=== PATIENT | female | born 1950 | race Caucasian/White ===

== ENCOUNTER 2017-02-04 15:19 | Emergency (ER) | payer OTHER ==
[2017-02-04 15:39] LABS: MANUAL DIFF NEEDED? NO
[2017-02-04 15:40] LABS: URINE SOURCE CLEAN CATCH
[2017-02-04 15:45] LABS: BASO% 0.2 % (0.0-0.8); BILIRUBIN URINE NEGATIVE (NEGATIVE); BLOOD URINE LARGE (NEGATIVE); COLOR YELLOW; EOS# 0.04 X1000 (0.0-0.7); EOS% 0.3 % (0.0-10.0); GLUCOSE URINE NEGATIVE (NEGATIVE); HEMATOCRIT 42.5 % (37.0-47.0); HEMOGLOBIN 13.8 g/dL (12.0-16.0); IMM GRAN# 0.03 X1000 (0.0-0.04); IMM GRAN% 0.2 % (0.0-0.5); LEUKOCYTES URINE MODERATE (NEGATIVE); LYMPH# 1.47 X1000 (1.2-3.4); LYMPH% 11.8 % (20.5-51.1); MCH 30.4 PG (27-31); MCHC 32.5 g/dL (33-37); MCV 93.6 FL (81-99); MONO# 0.69 X1000 (0.11-0.59); MONO% 5.5 % (1.7-9.3); MPV 9.7 FL (7.4-10.4); NITRITE URINE NEGATIVE (NEGATIVE); PH URINE 6.5; PLT 312 X1000 (130-400); PROTEIN URINE 30 mg/dL (NEGATIVE); RBC 4.54 XMIL (4.2-5.4); SP GRAVITY URINE 1.017; TURBIDITY URINE HAZY (CLEAR); URINE MICRO REVIEW NEEDED? YES; UROBILINOGEN URINE NORMAL (NORMAL)
[2017-02-04 15:58] LABS: UR EPITHELIAL CELLS >10 /HPF (<10); URINE BACTERIA 2+ /HPF; URINE CULTURE NEEDED? YES; URINE RBC TNTC /HPF (<10); URINE WBC TNTC /HPF (<10)
[2017-02-04 16:00] LABS: AGAP 16; ALBUMIN 3.7 g/dL (3.5-5.0); ALKALINE PHOSPHATASE 91 U/L (32-104); AMYLASE 60 U/L (20-200); BUN 12 mg/dL (8-22); CALCIUM 8.8 mg/dL (8.8-10.2); CHLORIDE 99 mmol/L (98-107); COSMO 272; GOT 18 U/L (10-30); GPT 12 U/L (10-36); LIPASE 24 U/L (13-60); POTASSIUM 3.5 mmol/L (3.5-5.1); SODIUM 135 mmol/L (136-145); TCO2 20 mmol/L (25-35); TOTAL BILIRUBIN 0.31 mg/dL (0.20-1.00); TOTAL PROTEIN 7.3 g/dL (6.3-8.3)
[2017-02-04 16:12] LABS: URINE SMALL ROUND CELLS TRANS PRESENT
--- NOTE | 2017-02-04 16:49 | PROVIDER DOCUMENTATION ---
HPI-Abdominal Pain/GI Problem - General Chief Complaint: Flank Pain Stated Complaint: NAUSEA/VOMITING Time Seen by Provider: 02/04/17 16:43 Source: patient Allergies/Adverse Reactions: Patient Allergies Allergy/AdvReac Type Severity Reaction Status Date / Time Sulfa (Sulfonamide Allergy NAUSEA/VOMI Verified 02/04/17 22:46 Antibiotics) TING Home Medications: Home Medication List Medication Instructions Recorded Confirmed Last Taken Type Meloxicam [Mobic] 15 mg PO DAILY 12/27/16 02/04/17 02/04/17 08:00 History Oxycodone/APAP 10 mg/325 mg 1 - 2 each PO Q4H PRN PRN #60 01/04/17 02/04/1711/11 08:00 Rx [Percocet-10] tablet Rivaroxaban [Xarelto] 10 mg PO Q24H #14 tablet 01/04/17 02/04/17 02/04/17 08:00 Rx Ciprofloxacin HCl [Cipro] 500 mg PO BID #14 tablet 02/04/17 Unknown Rx Hydrocodone/APAP 7.5 mg/325 mg 1 each PO Q6H PRN PRN #20 tablet 02/04/17 Unknown Rx [Sherman-7.5] Promethazine [Phenergan] 25 mg PO Q6H PRN PRN #20 tablet 02/04/17 Unknown Rx Tamsulosin [Flomax] 0.4 mg PO DAILY #20 capsule 02/04/17 Unknown Rx - History of Present Illness-ABD Nature of Presenting Problems: 66 y/o WF c/o bloating, N/V, abd. pain, L flank pain x 12 hours. Pt states nausea, chills x 2-3 days. Reports that vomit x 3 today. Reports little food today. L flank pain and epigastric pain- L flank pain started first. States 2 BM today. Pain is 8/10, achy and constant in L flank, burning in epigastric. Took miralax yesterday. States post-op L knee surgery x 5 weeks (TKR). States recent UTI prior to knee surgery. Denies urinary sxs. Review of Systems - Adult - REVIEW OF SYSTEMS - ADULT Constitutional: reports: see HPI, chills. denies: fever Eyes: reports: no symptoms reported. denies: blurred vision, double vision Ears, Nose, Mouth & Throat: reports: no symptoms reported. denies: ear pain, nose pain Cardiovascular: reports: no symptoms reported. denies: chest pain, palpitations Respiratory: reports: no symptoms reported. denies: dyspnea on exertion, shortness of breath Gastrointestinal: reports: see HPI, abdominal pain, nausea, vomiting. denies: constipation, diarrhea Genitourinary: reports: see HPI, flank pain, frequent UTI's. denies: dysuria, frequency Musculoskeletal: reports: no symptoms reported. denies: joint pain, joint swelling Integumentary: reports: no symptoms reported. denies: nail changes, rash Neurological: reports: no symptoms reported. denies: numbness, paresthesia Psychiatric: reports: no symptoms reported Endocrine: reports: no symptoms reported. denies: cold intolerance, heat intolerance Hematologic/Lymphatic: reports: no symptoms reported. denies: easy bruising, prolonged bleeding Allergic/Immunologic: reports: no symptoms reported All Other Systems: Reviewed and Negative Past History - Adult - PAST MEDICAL HISTORY-ADULT Review of Records: reports: Nursing Assessment Review, Medications Reviewed Musculoskeletal: reports: arthritis - PRIOR SURGERIES/PROCEDURES Surgical/Procedure History: reports: cholecystectomy, hysterectomy, orthopedic ( extremity) (bunion, trigger finger, CMC arthritis), joint replacement (L knee), back/neck (spondylosis), other (sinus polypectomy) - SOCIAL HISTORY Smoking: denies Alcohol Use Frequency: never Physical Exam-General - PHYSICAL EXAM-ADULT Initial Vital Signs Reviewed: Yes - CONSTITUTIONAL General Appearance: alert, moderate distress - EYES Eyes: pink conjunctivae - HEAD, EARS, NOSE, MOUTH & THROAT HENMT: normocephalic/atraumatic, moist mucous membranes - NECK Neck: supple, normal inspection - RESPIRATORY Respiratory: lungs clear, normal breath sounds. negative: crackles, rales, rhonchi, stridor, wheezing - CARDIOVASCULAR Cardiovascular: regular rate, rhythm. negative: bradycardia, tachycardia - GASTROINTESTINAL (ABDOMEN) Abdominal Exam: soft, tenderness (generalized, worse in epigastric). negative: normal bowel sounds (decreased), distended, guarding, rigid, rebound, McBurney' s point tenderness, Mack's sign - MUSCULOSKELETAL Back Exam: CVA tenderness (L) Extremity: normal gait, normal inspection, no calf tenderness - SKIN Integumentary: normal color, normal turgor, warm/dry. negative: diaphoresis - NEUROLOGIC Neurologic: negative: aphasia - PSYCHIATRIC Psych/Mental Status: normal mood/affect, normal thought content, normal thought process, oriented x 3 Progress - PLAN OF CARE/RESULTS Progress/Plan/Lab Results: Laboratory Tests 02/04/17 02/04/17 02/04/17 15:25 15:25 15:25 WBC 12.50 H RBC 4.54 Hgb 13.8 Hct 42.5 MCV 93.6 MCH 30.4 MCHC 32.5 L RDW Std Deviation 13.6 Plt Count 312 MPV 9.7 Immature Gran % (Auto) 0.2 Neut % (Auto) 82.0 H Lymph % (Auto) 11.8 L [place] % (Auto) 5.5 Eos % (Auto) 0.3 Baso % (Auto) 0.2 Immature Gran # (Auto) 0.03 Neut # (Auto) 10.24 H Lymph # (Auto) 1.47 [place] # (Auto) 0.69 H Eos # (Auto) 0.04 Baso # (Auto) 0.03 Sodium 135 L Potassium 3.5 Chloride 99 Carbon Dioxide 20 L Anion Gap 16 BUN 12 Creatinine 0.6 Estimated GFR/1.73 m2 > 60 BUN/Creatinine Ratio 20 Glucose 130 H Calculated Osmolality 272 Calcium 8.8 Total Bilirubin 0.31 AST 18 ALT 12 Alkaline Phosphatase 91 Total Protein 7.3 Albumin 3.7 Globulin 3.6 Albumin/Globulin Ratio 1.0 Amylase 60 Lipase 24 Urine Source CLEAN CATCH Urine Color YELLOW Urine Turbidity HAZY Urine pH 6.5 Ur Specific [place] 1.017 Urine Protein 30 A Ur Glucose (Stick) NEGATIVE Ur Ketones (Stick) 20 A Urine Blood LARGE A Urine Nitrite NEGATIVE Urine Bilirubin NEGATIVE Urobilinogen Dipstick NORMAL Urine Leukocytes MODERATE A Urine WBC (Auto) TNTC A Urine RBC (Auto) TNTC A U Epithel Cells (Auto) >10 A Urine Bacteria (Auto) 2+ Urine Crystals Not Reportable Small Round Cells TRANS PRESENT Urine Casts Not Reportable Urine Yeast-like Cells Not Reportable Orders Category Date Time Status RENAL STONE SEARCH [CT] Stat Exams 02/04/17 16:53 Completed AMYLASE [CHEM] Stat Lab 02/04/17 15:25 Completed CBC WITH ELECTRONIC DIFF [HEME] Stat Lab 02/04/17 15:25 Completed COMPREHENSIVE METABOLIC PANEL [CHEM] Stat Lab 02/04/17 15:25 Completed LIPASE [CHEM] Stat Lab 02/04/17 15:25 Completed URINALYSIS W/POSS RFLX CULT [URINALYSIS] Stat Lab 02/04/17 15:25 Completed URINE CULTURE [RM] Routine Lab 02/04/17 15:59 Completed URINE MANUAL MICROSCOPIC [URINALYSIS] Stat Lab 02/04/17 15:25 Completed CefTRIAXONE [Rocephin] Med 02/04/17 21:11 Discontinued 1 gm IM NOW ONE Hydromorphone [Dilaudid] Med 02/04/17 21:11 Discontinued 1 mg IM NOW ONE Lidocaine 1% Pf [Xylocaine-Mpf 1%] Med 02/04/17 21:11 Discontinued 5 ml INJ NOW ONE Ondansetron Odt [Zofran Odt] Med 02/04/17 16:54 Discontinued 4 mg PO NOW ONE Promethazine [Phenergan] Med 02/04/17 21:11 Discontinued 25 mg IM NOW ONE Tamsulosin [Flomax] Med 02/04/17 21:11 Discontinued 0.4 mg PO NOW ONE Vital Signs Temp Pulse Resp BP Pulse Ox 02/04/17 21:46 98.3 F 81 20 137/64 99 02/04/17 20:09 98.3 F 91 H 16 150/79 98 02/04/17 15:22 98.4 F 69 18 141/85 98 Sulfa (Sulfonamide Antibiotics) Allergy (Verified 12/27/16 16:02) NAUSEA/VOMITING Meloxicam [Mobic] 15 mg PO DAILY 12/27/16 Oxycodone/APAP 10 mg/325 mg [Percocet-10] 1 - 2 each PO Q4H PRN PRN #60 tablet 01/04/17 Rivaroxaban [Xarelto] 10 mg PO Q24H #14 tablet 01/04/17 Ciprofloxacin HCl [Cipro] 500 mg PO BID #14 tablet 02/04/17 Hydrocodone/APAP 7.5 mg/325 mg [Sherman-7.5] 1 each PO Q6H PRN PRN #20 tablet 11/11 Promethazine [Phenergan] 25 mg PO Q6H PRN PRN #20 tablet 02/04/17 Tamsulosin [Flomax] 0.4 mg PO DAILY #20 capsule 02/04/17 UNSPECIFIED OSTEOARTHRITIS, UNSPECIFIED SITE (02/04/17) HYDRONEPHROSIS WITH RENAL AND URETERAL CALCULOUS OBSTRUCTION (02/04/17) ACUTE CYSTITIS WITH HEMATURIA (02/04/17) EPIGASTRIC PAIN (02/04/17) GENERALIZED ABDOMINAL PAIN (02/04/17) NAUSEA WITH VOMITING, UNSPECIFIED (02/04/17) [facility] (CURRENT) USE OF ANTICOAGULANTS (02/04/17) [facility] (CURRENT) USE OF NON-STEROIDAL NON-INFLAM (NSAID) (02/04/17) OTHER [facility] (CURRENT) DRUG THERAPY (02/04/17) PERSONAL HISTORY OF URINARY (TRACT) INFECTIONS (02/04/17) PRESENCE OF UNSPECIFIED ARTIFICIAL KNEE JOINT (02/04/17) I&O 02/05/17 02/06/17 02/07/17 06:59 06:59 06:59 Output Total 120 Balance -120 Laboratory 02/04/17 02/04/17 02/04/17 15:25 15:25 15:25 WBC 12.50 H RBC 4.54 Hgb 13.8 Hct 42.5 MCV 93.6 MCH 30.4 MCHC 32.5 L RDW Std Deviation 13.6 Plt Count 312 MPV 9.7 Immature Gran % (Auto) 0.2 Neut % (Auto) 82.0 H Lymph % (Auto) 11.8 L [place] % (Auto) 5.5 Eos % (Auto) 0.3 Baso % (Auto) 0.2 Immature Gran # (Auto) 0.03 Neut # (Auto) 10.24 H Lymph # (Auto) 1.47 [place] # (Auto) 0.69 H Eos # (Auto) 0.04 Baso # (Auto) 0.03 Sodium 135 L Potassium 3.5 Chloride 99 Carbon Dioxide 20 L Anion Gap 16 BUN 12 Creatinine 0.6 Estimated GFR/1.73 m2 > 60 BUN/Creatinine Ratio 20 Glucose 130 H Calculated Osmolality 272 Calcium 8.8 Total Bilirubin 0.31 AST 18 ALT 12 Alkaline Phosphatase 91 Total Protein 7.3 Albumin 3.7 Globulin 3.6 Albumin/Globulin Ratio 1.0 Amylase 60 Lipase 24 Urine Source CLEAN CATCH Urine Color YELLOW Urine Turbidity HAZY Urine pH 6.5 Ur Specific [place] 1.017 Urine Protein 30 A Ur Glucose (Stick) NEGATIVE Ur Ketones (Stick) 20 A Urine Blood LARGE A Urine Nitrite NEGATIVE Urine Bilirubin NEGATIVE Urobilinogen Dipstick NORMAL Urine Leukocytes MODERATE A Urine WBC (Auto) TNTC A Urine RBC (Auto) TNTC A U Epithel Cells (Auto) >10 A Urine Bacteria (Auto) 2+ Urine Crystals Not Reportable Small Round Cells TRANS PRESENT Urine Casts Not Reportable Urine Yeast-like Cells Not Reportable Discussed results and medication use with pt, including f/u with specialist. Discussed pt with Dr. Hernandez; he agreed with tx plan. - CT/MRI 1 CT Study: Abdomen, Pelvis Impression: See EMR Report (1. There is a 9 mm stone in the proximal left ureter at the ureteropelvic junction with mild hydronephrosis. 2. Cholecystectomy. 3. Hysterectomy. -per Dr. Scherer) Departure - Departure Time of Disposition Order: 21:06 DIAGNOSIS: Ureteral stone with hydronephrosis UTI (urinary tract infection) Qualifiers: Urinary tract infection type: acute cystitis Hematuria presence: with hematuria Qualified Code(s): N30.01 - Acute cystitis with hematuria Disposition: HOME 01 Certified Medical Emergency: Emergent Condition: Stable Additional Instructions: Take medications as directed. Follow up with Dr. Rolon tomorrow for further evaluation. Drink plenty of fluids. ED Follow Up Instructions: You have been treated by a care provider in the Emergency Department. These instructions are being provided to you so you can have an understanding of how to care for yourself upon discharge. Upon discharge from the Emergency Department, you are responsible for making arrangements for follow-up care by a physician of your choice. Take all prescribed medications as directed. Return to the Emergency Department immediately for any new or worsening symptoms. You may call the Physician Referral phone number at [phone] to obtain a list of Physicians who are taking new patients. Prescriptions: Ciprofloxacin HCl [Cipro] 500 mg PO BID #14 tablet Tamsulosin [Flomax] 0.4 mg PO DAILY #20 capsule Hydrocodone/APAP 7.5 mg/325 mg [Sherman-7.5] 1 each PO Q6H PRN PRN #20 tablet PRN Reason: Pain Promethazine [Phenergan] 25 mg PO Q6H PRN PRN #20 tablet PRN Reason: Nausea Referrals: Danielle Thompson MD [Primary Care Provider] - Juancarlos Rolon MD [STAFF PHYSICIAN] - Instructions: Kidney Stones, [id number], Urinary Tract Infection, Easy-to- Read Attestation - Physician/ SHERMAN Attestation Patient care was provided by Advanced Practice Provider:: Yes Advanced Practice Provider:: Lora Echeverria Advanced Practice Provider documentation review:: The Mid-level provider documentation, treatment plan and medical decision making was reviewed by the physician who agrees with all treatment and medical decision making by the MLP.
[2017-02-04] MEDS ORDERED: ZOFRAN ODT PO ONE (16:54)
--- NOTE | 2017-02-04 19:30 | Diag Imaging Result Document ---
PROCEDURE NAME: RENAL STONE SEARCH - 02/04/2017 STUDY: CT abdomen and pelvis without oral or intravenous contrast. PROTOCOL: Dose reduction protocol. Renal stone search. The upper abdomen is not included on this exam. The gallbladder has been removed. Normal spleen and adrenal glands. No abnormality to the pancreas. No focal hepatic abnormality in the mid and lower liver on this noncontrasted study. No right renal stone or right- sided hydronephrosis. There is a 6 x 6 x 9 mm stone in the proximal left ureter at the ureteropelvic junction with mild perinephric inflammation and mild distention of the renal pelvis. No aortic aneurysm. No bowel obstruction. Normal appendix. No abscess. The uterus has been removed. The urinary bladder is not distended. IMPRESSION: 1. There is a 9 mm stone in the proximal left ureter at the ureteropelvic junction with mild hydronephrosis. 2. Cholecystectomy. 3. Hysterectomy. A preliminary report was given at 6:12 p.m.
[2017-02-04] MEDS ORDERED: PHENERGAN IM ONE (21:11)
[2017-02-04] MEDS ORDERED: ROCEPHIN IM ONE (21:11)
[2017-02-04] MEDS ORDERED: XYLOCAINE-MPF 1% INJ ONE (21:11)
[2017-02-04] MEDS ORDERED: DILAUDID IM ONE (21:11)
[2017-02-04] MEDS ORDERED: FLOMAX PO ONE (21:11)
[2017-02-04 21:47] VITALS: BP 137/64
== END 2017-02-04 22:25 | disposition home or self-care (01) ==
LOC: ED 15:19
DX: N13.2 Hydronephrosis with renal and ureteral calculous obstruction (principal); N30.01 Acute cystitis with hematuria; R11.2 Nausea with vomiting, unspecified; R10.13 Epigastric pain; R10.84 Generalized abdominal pain; Z87.440 Personal history of urinary (tract) infections; M19.90 Unspecified osteoarthritis, unspecified site; Z96.659 Presence of unspecified artificial knee joint; Z79.899 Other long term (current) drug therapy; Z79.01 Long term (current) use of anticoagulants; Z79.1 Long term (current) use of non-steroidal anti-inflammatories (NSAID)
CPT/HCPCS: 36415; 74176; 80053; 81001; 82150; 83690; 85025; 87077; 87088; 87186; 96372; J0696; J1170; J2550

== ENCOUNTER 2017-02-08 05:49 | Day surgery (SDC) | payer OTHER ==
[2017-02-07 10:48] LABS: HEMOGLOBIN 12.4 g/dL (12.0-16.0); MCH 29.9 PG (27-31); MCHC 31.8 g/dL (33-37); MPV 9.7 FL (7.4-10.4); RBC 4.15 XMIL (4.2-5.4)
[2017-02-07 11:15] LABS: CALCIUM 9.1 mg/dL (8.8-10.2); POTASSIUM 3.7 mmol/L (3.5-5.1)
[2017-02-08] MEDS ORDERED: PEPCID ONE (06:16)
[2017-02-08] MEDS ORDERED: REGLAN ONE (06:16)
[2017-02-08] MEDS ORDERED: KEFZOL 2 GM/D5W 50 ML ONE (06:17)
[2017-02-08] MEDS ORDERED: TRANSDERM-SCOP ONE (06:30)
[2017-02-08] MEDS: LR 1,000 ML ONE ×2 (06:33→06:55)
[2017-02-08] MEDS ORDERED: DUONEB (A & A) INH ONE (08:18)
[2017-02-08] MEDS: MORPHINE ONE ×4 (08:40→08:55)
[2017-02-08] MEDS ORDERED: LR 1,000 ML ONE (08:42)
--- NOTE | 2017-02-08 09:07 | OPERATIVE NOTE ---
PROCEDURE DATE: 02/08/2017 PREOPERATIVE DIAGNOSIS: Left ureteropelvic junction stone. POSTOPERATIVE DIAGNOSIS: Left ureteropelvic junction stone. PROCEDURE PERFORMED: Extracorporeal shockwave lithotripsy of the left ureteropelvic junction stone. SURGEON: Carlos A Dias MD ANESTHESIA: General endotracheal. FINDINGS: An approximate 8-9 mm stone at the left ureteropelvic junction. INDICATION FOR PROCEDURE: This 66-year-old female with history of renal lithiasis developed severe left flank pain. Evaluation revealed a left UPJ stone. DESCRIPTION OF PROCEDURE: After informed consent was obtained from the patient and her receiving IV antibiotics, she was taken to the main OR, placed in the supine position, and general endotracheal anesthesia was achieved. She was then placed in the proper position for left extracorporeal shockwave lithotripsy. The stone received 3000 shocks, starting at energy level 1, ramping to energy level 7. She received 12.5 g of mannitol at the start of the case. At completion, the stone appeared well fragmented. Estimated blood loss was zero. She tolerated the procedure well. Total fluoroscopy time was 2 minutes 33 seconds. She was taken to the recovery room in good condition.
[2017-02-08] MEDS ORDERED: FLOMAX ONE (09:16)
[2017-02-08] MEDS ORDERED: NORCO-10 ONE (09:16)
[2017-02-08 09:55] VITALS: BP 122/66
[2017-02-08] MEDS ORDERED: FENTANYL ONE (09:56)
[2017-02-08] MEDS ORDERED: MANNITOL ONE (10:14)
[2017-02-08] MEDS ORDERED: ROBINUL ONE (10:15)
[2017-02-08] MEDS ORDERED: DECADRON ONE (10:15)
[2017-02-08] MEDS ORDERED: ZOFRAN ONE (10:15)
[2017-02-08] MEDS ORDERED: QUELICIN (DOSE) ONE (10:15)
[2017-02-08] MEDS ORDERED: VENTOLIN HFA ONE (10:15)
[2017-02-08] MEDS ORDERED: XYLOCAINE-MPF 2% ONE (10:15)
[2017-02-08] MEDS ORDERED: DIPRIVAN 1% ONE (12:31)
== END 2017-02-08 09:55 | disposition home or self-care (01) ==
LOC: OPS 05:49
PROVIDERS: ATTEND Urology
DX: N20.1 Calculus of ureter (principal); Z87.891 Personal history of nicotine dependence
CPT/HCPCS: 80048; 85027; 94640; J0330; J0690; J1100; J2150; J2270; J2405; J3010; J7120

== ENCOUNTER 2019-10-07 09:40 | Day surgery (SDC) ==
--- NOTE | 2019-10-01 17:48 | EKG Report ---
Test Performed on : 10/01/2019 5:30:11 PM Test Reason : PAT Blood Pressure : / mmHG Vent. Rate : 073 BPM Atrial Rate : 073 BPM P-R Int : 134 ms QRS Dur : 120 ms QT Int : 408 ms P-R-T Axes : 050 025 002 degrees QTc Int : 449 ms Normal sinus rhythm. Right bundle branch block Abnormal ECG When compared with ECG of 27-DEC-2016 12:37, T wave inversion now evident in Inferior leads T wave inversion more evident in Anterior leads Unconfirmed Result
[2019-10-01 17:54] LABS: URINE SOURCE CLEAN CATCH
[2019-10-01 17:54] LABS: BASO# 0.06 X1000 (0.0-0.2); BASO% 0.7 % (0.0-0.8); EOS# 0.44 X1000 (0.0-0.7); EOS% 4.8 % (0.0-10.0); HEMATOCRIT 48.4 % (37.0-47.0); HEMOGLOBIN 15.4 g/dL (12.0-16.0); IMM GRAN# 0.03 X1000 (0.0-0.04); IMM GRAN% 0.3 % (0.0-0.5); LYMPH# 2.59 X1000 (1.2-3.4); LYMPH% 28.2 % (20.5-51.1); MCH 30.3 PG (27-31); MCHC 31.8 g/dL (33-37); MCV 95.1 FL (81-99); MONO# 0.92 X1000 (0.11-0.59); MPV 9.7 FL (7.4-10.4); NEUT# 5.14 X1000 (1.4-6.5); PLT 303 X1000 (130-400); RBC 5.09 XMIL (4.2-5.4); RDW 13.8 % (11.5-14.5); WBC 9.18 X1000 (4.8-10.8)
[2019-10-01 18:16] LABS: INR 1.22; PROTIME 15.6 Seconds (11.0-16.0)
[2019-10-01 18:19] LABS: AGAP 5; BUN 12 mg/dL (8-22); CALCIUM 8.7 mg/dL (8.8-10.2); CHLORIDE 100 mmol/L (98-107); COSMO 268; CREATININE 0.7 mg/dL (0.5-0.9); ESTIMATED GFR > 60; GLUCOSE 98 mg/dL (70-104); POTASSIUM 3.8 mmol/L (3.5-5.1); SODIUM 134 mmol/L (136-145); TCO2 29 mmol/L (25-35)
[2019-10-01 18:30] LABS: BILIRUBIN URINE NEGATIVE (NEGATIVE); BLOOD URINE TRACE (NEGATIVE); COLOR YELLOW; GLUCOSE URINE NEGATIVE (NEGATIVE); KETONE URINE NEGATIVE (NEGATIVE); LEUKOCYTES URINE NEGATIVE (NEGATIVE); NITRITE URINE NEGATIVE (NEGATIVE); PROTEIN URINE NEGATIVE (NEGATIVE); SP GRAVITY URINE 1.016; TURBIDITY URINE CLEAR (CLEAR); UROBILINOGEN URINE NORMAL (NORMAL)
[2019-10-01 18:32] LABS: UR EPITHELIAL CELLS <10 /HPF (<10); URINE BACTERIA NEGATIVE /HPF; URINE RBC <10 /HPF (<10); URINE WBC <10 /HPF (<10)
[2019-10-07] MEDS ORDERED: XYLOCAINE-MPF 2% ONE (09:50)
[2019-10-07] MEDS ORDERED: ZOFRAN ONE (09:50)
[2019-10-07] MEDS ORDERED: FENTANYL ONE (09:50)
[2019-10-07] MEDS ORDERED: DECADRON ONE (09:50)
[2019-10-07] MEDS ORDERED: ROBINUL ONE (09:50)
[2019-10-07] MEDS ORDERED: DIPRIVAN 1% ONE ×2 (09:51→10:57)
[2019-10-07] MEDS ORDERED: OFIRMEV 1000 MG/ISOTONIC SOLN 1,000 MG/100 ML BOTTLE ONE (09:51)
[2019-10-07] MEDS ORDERED: PEPCID ONE (09:59)
[2019-10-07] MEDS ORDERED: KEFZOL 1 GM/D5W 2 GM/100 ML IVPB ONE (09:59)
[2019-10-07] MEDS ORDERED: COLACE ONE (09:59)
[2019-10-07] MEDS ORDERED: LR 1,000 ML ONE (09:59)
[2019-10-07] MEDS ORDERED: LYRICA ONE (09:59)
[2019-10-07] MEDS ORDERED: REGLAN ONE (09:59)
[2019-10-07] MEDS ORDERED: DURAMORPH ONE (10:53)
[2019-10-07] MEDS ORDERED: MARCAINE 0.25% PF ONE (10:53)
[2019-10-07] MEDS ORDERED: VANCOMYCIN ONE (10:53)
[2019-10-07] MEDS ORDERED: TORADOL ONE (10:53)
[2019-10-07] MEDS ORDERED: EXPAREL 1.3% ONE (10:54)
[2019-10-07] MEDS ORDERED: SODIUM CHLORIDE 0.9% ONE (10:54)
[2019-10-07] MEDS ORDERED: VERSED ONE (11:24)
[2019-10-07] MEDS: CYKLOKAPRON 1,000 MG/NS 2,000 MG/200 ML IVPB ONE ×2 (11:50→12:42)
[2019-10-07 13:00] LABS: URINE SOURCE CATH
[2019-10-07 13:04] LABS: BILIRUBIN URINE NEGATIVE (NEGATIVE); BLOOD URINE NEGATIVE (NEGATIVE); COLOR YELLOW; GLUCOSE URINE NEGATIVE (NEGATIVE); KETONE URINE NEGATIVE (NEGATIVE); LEUKOCYTES URINE NEGATIVE (NEGATIVE); NITRITE URINE NEGATIVE (NEGATIVE); PROTEIN URINE NEGATIVE (NEGATIVE); SP GRAVITY URINE 1.013; TURBIDITY URINE CLEAR (CLEAR); UR EPITHELIAL CELLS <10 /HPF (<10); URINE BACTERIA NEGATIVE /HPF; URINE RBC <10 /HPF (<10); URINE WBC <10 /HPF (<10); UROBILINOGEN URINE NORMAL (NORMAL)
--- NOTE | 2019-10-07 13:58 | Diag Imaging Result Doc PS360 ---
EXAM: KNEE 1-2 VIEWS-RIGHT 10/07/2019 HISTORY: post op TECHNIQUE: Right knee two views COMMENT: There is a total knee arthroplasty. There is no evidence of acute bony abnormality otherwise. IMPRESSION: Postsurgical change. Electronically signed by Rodolfo Mijares 10/07/2019 1:56 PM
[2019-10-07] MEDS ORDERED: NS 1,000 ML ONE (14:00)
--- NOTE | 2019-10-07 14:23 | OPERATIVE NOTE ---
PROCEDURE DATE: 10/07/2019 PREOPERATIVE DIAGNOSIS: Degenerative joint disease, right knee. POSTOPERATIVE DIAGNOSIS: Degenerative joint disease, right knee. OPERATIVE PROCEDURE PERFORMED: Right total knee replacement. SURGEON: Margaux Domínguez MD. NURSE LEADER: OLE Irwin. Mr. Kan was necessary for proper retraction and manipulation of the leg during the case. ANESTHESIA: Spinal. COMPLICATIONS: None. PROCEDURE IN DETAIL: This 69-year-old female presents for a right total knee replacement. Risks, benefits, and no guarantees were discussed, and she is willing to proceed. She was taken to the operating room and satisfactory anesthesia obtained. The right leg was prepped and draped in the usual sterile fashion. A time-out was taken to confirm operative site, procedure, and patient. The leg was wrapped with an Esmarch and tourniquet inflated to 350 mmHg. A midline incision was made over the front of the right knee, followed by a quad tendon sparing arthrotomy. The patella was everted and resurfaced with freehand technique. With the patella subluxed laterally, the knee was flexed. An intramedullary hole was made in the distal femur and the distal femoral cutting block secured in 5 degrees of valgus. Distal femoral resection was made and the femur sized to a size 4 femoral implant. The finishing block was secured, and the anterior, posterior, and chamfer cuts sequentially made. Afterwards, any osteophytes were debrided from the femur. The knee was flexed and a PCL retractor placed behind the tibia to protect the PCL and neurovascular bundle. Tibial cutting block was secured with extramedullary alignment and tibial resection made. Flexion and extension gaps were equal with a 10 mm spacer. The tibia was sized to a size 3 tibial tray. A trial reduction was performed with trial components with a 3 tibial tray, a 10 mm spacer, and a size 4 cruciate-retaining femoral component. Good range of motion and stability were noted with a 4 narrow component. The patella was sized to a 32 anatomic medialized patella. Drill holes were placed for the patellar implant and the femoral components. The trial components were removed and all bony surfaces thoroughly irrigated with pulsatile lavage. Cement with a gram of vancomycin was utilized to cement a size 3 rotating platform DePuy Attune tibial baseplate, a size 4 narrow right cruciate-retaining femoral component, and a 32 medialized anatomic patella. Excess cement was removed with a [place] elevator. After curing the cement, a 10 mm thick, size 4 cruciate retaining polyethylene bearing was inserted in the tibial tray and the knee reduced. Final range of motion was assessed to be 0 to 130 degrees with midline patellar tracking. Excess cement was removed with a [place] elevator as necessary. The joint capsule was injected with Exparel, followed by placement of a Hemovac drain. The arthrotomy was then copiously irrigated with irrigant. It was closed over the drain with #1 Vicryl in the arthrotomy, 2-0 Vicryl in the subcutaneous, and skin barbara on the skin edges. Sterile dressings completed the closure. The patient was recovered from anesthesia and transferred to the recovery room in stable condition. No intraoperative complications were noted. Instrument count and sponge count were correct at the time of closure. cc: Reynaldo Domínguez MD
[2019-10-07] MEDS ORDERED: MORPHINE IV PRN ×3 (16:30)
[2019-10-07] MEDS ORDERED: ZOFRAN ODT PO PRN (16:30)
[2019-10-07] MEDS ORDERED: ZOFRAN IV PRN (16:30)
[2019-10-07] MEDS ORDERED: OXY IR PO PRN (16:30)
[2019-10-07] MEDS ORDERED: TYLENOL PO SCH (16:30)
[2019-10-07] MEDS ORDERED: NS 1,000 ML IV SCH (16:30)
[2019-10-07] MEDS ORDERED: KEFZOL 2 GM/D5W 2 GM/50 ML IVPB IV SCH (17:00)
[2019-10-07] MEDS: ULTRAM PO SCH ×2 (17:06→23:21)
[2019-10-07] MEDS: TYLENOL PO SCH ×2 (17:06→23:21)
[2019-10-07] MEDS: NS 1,000 ML IV SCH (17:07)
[2019-10-07] MEDS: KEFZOL 2 GM/D5W 2 GM/50 ML IVPB IV SCH (19:35)
[2019-10-07] MEDS: OXY IR PO PRN (19:35)
--- NOTE | 2019-10-07 20:11 | ORTHOPAEDICS PROGRESS NOTE ---
DATE: 10/07/2019 Ms. Kaur is seen status post total knee replacement. At the present time, she is afebrile with stable vital signs. Her bandage is clean and dry. She is motor and sensory intact in the lower extremity with good quad and hamstring function as well as ankle dorsiflexion and plantar flexion. Presently, she is to be mobilized with therapy. She can be discharged home when she is mobilizing well with therapy. She is stable at the present time. cc: Reynaldo Domínguez MD
[2019-10-07] MEDS: COLACE PO SCH (20:32)
[2019-10-07] MEDS: PERIDEX MT SCH (20:32)
[2019-10-08] MEDS: OXY IR PO PRN (02:51)
[2019-10-08] MEDS: NS 1,000 ML IV SCH ×2 (02:53→06:45)
[2019-10-08] MEDS: KEFZOL 2 GM/D5W 2 GM/50 ML IVPB IV SCH (02:54)
[2019-10-08] MEDS: ULTRAM PO SCH ×2 (05:59→13:51)
[2019-10-08] MEDS: TYLENOL PO SCH ×2 (06:00→13:51)
[2019-10-08 06:35] LABS: HEMATOCRIT 44.1 % (37.0-47.0)
[2019-10-08 07:05] LABS: AGAP 13; BUN 11 mg/dL (8-22); CHLORIDE 100 mmol/L (98-107); COSMO 272; CREATININE 0.6 mg/dL (0.5-0.9); ESTIMATED GFR > 60; GLUCOSE 152 mg/dL (70-104); POTASSIUM 4.2 mmol/L (3.5-5.1); SODIUM 135 mmol/L (136-145); TCO2 22 mmol/L (25-35)
[2019-10-08] MEDS ORDERED: ASPIRIN PO SCH (09:00)
[2019-10-08] MEDS ORDERED: PEPCID PO SCH (09:00)
[2019-10-08] MEDS ORDERED: MOBIC PO SCH (09:00)
[2019-10-08] MEDS: COLACE PO SCH (09:35)
[2019-10-08] MEDS: PERIDEX MT SCH (09:36)
--- NOTE | 2019-10-08 11:31 | ORTHOPAEDICS PROGRESS NOTE ---
DATE: 10/08/2019 Ms. Kaur is seen status post total knee replacement. She is afebrile with stable vital signs. She is doing well with rehab. Will mobilize her today, and discharge her home with home therapy. She can continue with her regular medicines, including Henry as needed for pain, doxycycline for wound prophylaxis, and aspirin a day for DVT prophylaxis. I will see her back in roughly 12 days' time for followup. She can return in the interim for any worsening signs or symptoms. cc: Reynaldo Domínguez MD
[2019-10-08 14:07] VITALS: BP 116/66
== END 2019-10-08 15:34 | disposition home or self-care (01) ==
LOC: OPS 09:40 → 4N 09:40 → EDSTATUS 12:00 → OPS 10-08 15:34
PROVIDERS: ATTEND Orthopaedic Surgery Adult Reconstructive Orthopaedic Surgery